=== PATIENT | female | born 1995 | race Caucasian/White ===

== ENCOUNTER 2020-02-12 17:10 | Observation (INO) | payer OTHER, SELFPAY ==
[2020-02-12 17:30] VITALS: BP 108/69; PULSE 74
[2020-02-12 17:45] VITALS: BP 112/73; PULSE 89
[2020-02-12 18:16] VITALS: BMI 27.6
--- NOTE | 2020-02-12 18:16 | OBADM ---
This patient, Calista Ornelas, admitted to the OB room OB Post 117 for observation. Patient/family oriented to hospital policies and general routines including ID bracelet, bed and alarms, visiting hours, pain management, procedures, bathroom and other care routines, personal items, smoking policy, room service/diet, and visiting hours. Patient/Family are encouraged to report perceived risks to care and to ask questions if they do not understand what they are told or what they should do.
--- NOTE | 2020-02-15 11:30 | PM.OBTRLD ---
OB - Triage/Final Diagnosis Visit Information Date of evaluation: 02/12/20 Reason for evaluation: other (r/o ROM)
== END 2020-02-12 18:15 | disposition home or self-care (01) ==
PROVIDERS: Admitting Provider Obstetrics & Gynecology; PCP Family Medicine; Visit Provider Student in an Organized Health Care Education/Training Program
DX: O42.912 Preterm premature rupture of membranes, unspecified as to length of time between rupture and onset of labor, second trimester (principal); Z3A.26 26 weeks gestation of pregnancy
CPT/HCPCS: 84112; G0378; G0379

== ENCOUNTER 2020-05-06 16:54 | Outpatient (RCR) | payer OTHER, SELFPAY ==
[2020-04-29 16:25] VITALS: BP 116/77; PULSE 90
== END 2020-05-12 08:07 | disposition home or self-care (01) ==
LOC: ANHOBOP 16:54
PROVIDERS: PCP Family Medicine; Visit Provider Obstetrics & Gynecology
DX: O41.03X0 Oligohydramnios, third trimester, not applicable or unspecified (principal); Z3A.37 37 weeks gestation of pregnancy; Z3A.38 38 weeks gestation of pregnancy
CPT/HCPCS: 59025

== ENCOUNTER 2020-05-09 22:45 | Inpatient (IN) | payer OTHER, SELFPAY ==
[2020-05-10] VITALS (119 sets, daily range): BP systolic 89–147; BP diastolic 50–109; PULSE 64–286; RESP 16–18; TEMP 36.7–37.4; O2SAT 97–100; BMI 30.7
[2020-05-10 01:02] LABS: Basophils Absolute Auto 0.1 K/mm3 (0.0-0.1); Basophils Percent Auto 0.4 % (0.2-1.2); Eosinophils Absolute Auto 0.1 K/mm3 (0-0.3); Eosinophils Percent Auto 0.7 % (0-4.4); Hematocrit 36.3 % (37.0-47.0); Immature Granulocyte Absolute 0.16 K/mm3 (0.00-0.031); Immature Granulocyte Percent A 1.1 % (0-0.5); Lymphocytes Absolute Auto 2.02 K/mm3 (0.9-3.2); Lymphocytes Percent Auto 14.2 % (18.3-44.2); Mean Corpuscular HGB Conc 33.1 g/dl (32-36); Mean Corpuscular Hemoglobin 30.8 pg (26-34); Mean Corpuscular Volume 93.3 fl (80-100); Neutrophils Absolute Auto 10.9 K/mm3 (1.3-6.7); Neutrophils Percent Auto 76.6 % (45.5-73.1); Platelet Count Result 294 k/mm3 (150-375); Red Blood Count 3.89 M/mm3 (4.2-5.4); Red Cell Distribution Width 13.8 % (11.5-14.5); White Blood Count 14.2 K/mm3 (4.5-10.0)
--- NOTE | 2020-05-10 01:02 | LDADM ---
This patient, Calista Ornelas, was admitted to Labor/Delivery/Recovery 104 on 05/09/20 at 22:45. Plans for labor, pain management and were discussed with patient. Patient/family oriented to hospital policies and general routines including ID bracelet, bed and alarms, visiting hours, pain management, procedures, bathroom and other care routines, personal items, smoking policy, room service/diet and guest tray routines, security routines, and visiting hours. Patient/Family are encouraged to report perceived risks to care and to ask questions if they do not understand what they are told or what they should do. See OBIX for further documentation.
[2020-05-10] MEDS: LACTATED RINGERS 1,000 ML 125 ML IV CONT ×3 (02:10→04:04)
--- NOTE | 2020-05-10 02:35 | WPDANESEPP ---
Anes - Eval Pre Procedure Procedure: Labor epidural Date/Time: 05/10/20 02:35 Surgeon: arlen Preop Diagnosis: Abd pain with contractions Pre Op Diagnosis: Contractions Patient Data Age: 25 Gender: F Height: 5 ft 6 in Weight: 86.3 kg Allergies Allergy/AdvReac Type Severity Reaction Status Date / Time No Known Allergies Allergy Unknown Verified 04/19/20 15:40 Home Medications Medication Instructions Recorded Confirmed Type PNV cmb#95-ferrous fumarate-FA 1 tablet PO DAILY 04/19/20 04/19/20 History [] Laboratory Tests 05/10/20 05/10/20 05/10/20 00:54 00:54 00:54 WBC 14.2 K/mm3 H K/mm3 (4.5-10.0) RBC 3.89 M/mm3 L M/mm3 (4.2-5.4) Hgb 12.0 g/dL g/dL (12.0-15.0) Hct 36.3 % L % (37.0-47.0) MCV 93.3 fl fl (80-100) MCH 30.8 pg pg (26-34) MCHC 33.1 g/dl g/dl (32-36) RDW 13.8 % % (11.5-14.5) Plt Count 294 k/mm3 k/mm3 (150-375) MPV 10.0 fl fl (7.4-10.4) Immature Gran % (Auto) 1.1 % H % (0-0.5) Neut % (Auto) 76.6 % H % (45.5-73.1) Lymph % (Auto) 14.2 % L % (18.3-44.2) [place] % (Auto) 7.0 % % (2.6-8.5) Eos % (Auto) 0.7 % % (0-4.4) Baso % (Auto) 0.4 % % (0.2-1.2) Lymph # (Auto) 2.02 K/mm3 K/mm3 (0.9-3.2) [place] # (Auto) 1.0 K/mm3 H K/mm3 (0.1-0.6) Eos # (Auto) 0.1 K/mm3 K/mm3 (0-0.3) Baso # (Auto) 0.1 K/mm3 K/mm3 (0.0-0.1) Abs Immat Gran (auto) 0.16 K/mm3 H K/mm3 (0.00-0.031) Absolute Neuts (auto) 10.9 K/mm3 H K/mm3 (1.3-6.7) Absolute Nucleated RBC 0.0 K/mm3 K/mm3 (0.0-0.012) Nucleated RBC % 0.0 % % (0.0-0.2) RPR Pending Blood Type O Positive Antibody Screen Negative Patient hx anesthesia problems: none Family hx anesthesia problems: none [facility] Past Medical History Medical History Chronic migraine without aura, not intractable, without status migrainosus H/O: 1 miscarriage (~05/2019) Family History Family History Father Diabetes mellitus Grandparent Family history of pancreatic cancer Mother Hypertension Social History Social History Smoking status: Never smoker Second hand tobacco smoke exposure: No Alcohol intake: current Substance use: never Spiritual care concerns: No Exam Day of Procedure 05/10/20 02:35 Patient weight: normal Neurological: alert and oriented
[2020-05-10] MEDS: OXYTOCIN 30 UNITS/NS 500 ML 30 UNITS/500 ML BAG IV CONT (06:16)
[2020-05-10 07:20] LABS: Rapid Plasma Reagin Non-Reactive (NonReactive)
--- NOTE | 2020-05-10 08:30 | WPDOBADMIT ---
Obstetrics - Admit Note Admission Note: record reviewed. Additions to the history and/or subsequent changes in the physical findings follow. 25 y/o at 38 4/7 weeks here with complaint of contractions. Admitted for labor. Now comfortable with epidural. Labor has progressed and her cervix is now complete. GBS neg. AVSS NST reactive TOCO: contractions every 2-3 min ABD soft, nontender, gravid, vertex EXT nontender Cervix C/+2 A: IUP at term with labor. P: Anticipate .
--- NOTE | 2020-05-10 09:11 | P.PCNOB_ITS ---
OB - Delivery Note Procedure Delivery date: 05/10/20 Procedure: Induction method: none Delivery monitor: external FHT and external uterine Route of delivery: Laceration description: Perineal - 2nd Degree Delivery repair: vicryl (3-0) Specimen: Yes (cord blood, placenta) Estimated blood loss (mL): 120 Anesthesia type: Epidural Disposition: PACU Complications: None Narrative: 25 y/o at 38 4/7 weeks gestation who presented to the hospital with complaint of contractions. Labor was diagnosed. She received an epidural for pain control. Labor was briefly augmented with oxytocin. SROM occurred with meconium-stained fluid. Her labor progressed and her cervix dilated completely. She pushed with good effort and delivered the 's head to the perineum. A loose nuchal cord was reduced. The body delivered. The nose and mouth were bulb suctioned. After a delay, the cord was clamped and cut. The was handed off the field. Cord blood was collected. The placenta delivered spontaneously and was grossly normal in appearance. The usual 3 vessel cord was noted. A second degree midline perineal laceration was sustained. This was reapproximated using 3 0 Vicryl in the usual layered fashion. Excellent hemostasis resulted as did excellent reapproximation of the normal anatomy. Needle and instrument counts were correct. The patient was taken to recovery room in stable condition. The infant went to the nursery in stable condition. I was present and scrubbed for the entire delivery. [place] Baby Date of : 05/10/20 Time of : 08:50 Weeks of gestation at delivery: 38 Infant gender: Female Weight (pounds): 7 Weight (ounces): 9 presentation: vertex position: Left Occiput Anterior Placenta delivery description: Spontaneous and Normal Configuration cord vessel description: 3 Vessels and Nuchal Cord score one minute: 8 score five minutes: 9
--- NOTE | 2020-05-10 09:14 | PM.OBDSVD ---
DS: Admitting Diagnosis Admitting Diagnosis Admitting Diagnosis: Contractions DS: Discharge Diagnosis Discharge Diagnosis (1) (normal spontaneous vaginal delivery): Code(s): O80 - Encounter for full-term uncomplicated delivery Status: Acute OB - DS: Summary OB Procedures : None OB Procedures Intrapartum: Spontaneous Vag Delivery OB Procedures: : Rubella lg Time Spent with Patient Time attestation: Total time spent providing and/or coordinating discharge services: DS: Data Data Completed and Pending Pending studies at discharge: Pending at discharge 05/10/20 08:54 Surgical [PTH] Routine Labs on day of discharge: Labs from last 24 hours 05/10/20 05/10/20 05/10/20 00:54 00:54 00:54 WBC 14.2 H RBC 3.89 L Hgb 12.0 Hct 36.3 L MCV 93.3 MCH 30.8 MCHC 33.1 RDW 13.8 Plt Count 294 MPV 10.0 Immature Gran % (Auto) 1.1 H Neut % (Auto) 76.6 H Lymph % (Auto) 14.2 L [place] % (Auto) 7.0 Eos % (Auto) 0.7 Baso % (Auto) 0.4 Lymph # (Auto) 2.02 [place] # (Auto) 1.0 H Eos # (Auto) 0.1 Baso # (Auto) 0.1 Abs Immat Gran (auto) 0.16 H Absolute Neuts (auto) 10.9 H Absolute Nucleated RBC 0.0 Nucleated RBC % 0.0 RPR Non-reactive Blood Type O Positive Antibody Screen Negative Discharge Plan Discharge Attending physician on discharge: Shiv Webb Discharging Clinician: Shiv Webb Patient Disposition: Home, Self-Care Activity: pelvic rest Diet: regular Discharge Instructions: Call or return if temperature above 100.4? F, increased abdominal pain, increased vaginal bleeding or any new problems. Stand Alone Forms: General Discharge Information Follow-up/Referrals: Shiv Webb MD [Physician] - (6 weeks) Discharge Medications: New ibuprofen 600 mg tablet 600 mg PO Q6H PRN (Reason: cramps) Qty: 30 RF: 0 fluoxetine 20 mg capsule 20 mg PO DAILY Qty: 30 RF: 1 No Action PNV cmb#95-ferrous fumarate-FA [] 28 mg iron- 800 mcg Tablet 1 tablet PO DAILY RF: 0 Date of admission: 05/09/20 22:45 Primary Care Provider: Seven,Namrata Franklin Admitting Provider: Shiv Webb Attending physician on admission: Shiv Webb
[2020-05-10] MEDS: OXYTOCIN 30 UNITS/NS 500 ML 30 UNITS/500 ML BAG 125 UNITS IV CONT (09:24)
[2020-05-10] MEDS: BENZOCAINE 20% AER SPR (*SP) 56 GM CAN 1 SPRAY TOPICAL (09:40)
[2020-05-10] MEDS: LANOLIN (LANSINOH) 7.5 GM CREAM 1 APPLIC TOPICAL (09:40)
[2020-05-10] MEDS: WITCH HAZEL 40 PADS 1 PAD TOPICAL (09:40)
[2020-05-10] MEDS: IBUPROFEN 600 MG TABLET PO ×3 (09:41→22:02)
--- NOTE | 2020-05-10 11:17 | OBPPTRN ---
Patient transferred to post room #284 via wheelchair at 1117. Support person present. Oriented to unit, room, information board, rooming in, admission packet and security measures. Patient verbalizes understanding.
[2020-05-10] MEDS: DOCUSATE SODIUM 100 MG CAPSULE PO (15:37)
[2020-05-10] MEDS: ACETAMINOPHEN 325 MG TABLET 650 MG PO (20:40)
[2020-05-11] MEDS: ACETAMINOPHEN 325 MG TABLET 650 MG PO ×3 (02:39→13:07)
[2020-05-11] MEDS: IBUPROFEN 600 MG TABLET PO ×2 (04:35→10:33)
[2020-05-11 05:58] LABS: Hematocrit 30.8 % (37.0-47.0)
[2020-05-11] MEDS: DOCUSATE SODIUM 100 MG CAPSULE PO ×2 (07:44→15:12)
[2020-05-11] MEDS: MULTIVIT/MIN/PREN/FOL AC/IRON TABLET 1 TAB PO (07:44)
[2020-05-11 08:00] VITALS: BP 101/56; PULSE 65; RESP 18; TEMP 36.7
--- NOTE | 2020-05-11 08:55 | WPDANLDPN2 ---
Anes-Prog Note L&D Date/Time: 05/11/20 08:55 Comfortable throughout: labor and delivery Neuraxial method: epidural Epidural/Spinal procedure site: clean & non-tender Neuro status: Neuro function grossly intact. Cardiovascular status: normal Respiratory status: normal Airway patency: baseline Mental status: baseline Post-Op hydration status: normal Vital Signs: Last Vital Signs Temp 36.8 C 05/10/20 20:00 Pulse 78 05/10/20 20:00 Resp 18 05/10/20 20:00 BP 113/76 05/10/20 20:00 Pulse Ox 97 05/10/20 20:00 Post-procedural complaints: none Patient feedback: Patient satisfied with anesthetic care.
--- NOTE | 2020-05-11 12:57 | PM.OBPNVD ---
OB - PN: Subj Subjective Date/time seen: 05/11/20 12:57 Narrative: Pain OK. Would like to resume fluoxetine 20 mg. Wants to go home. OB - PN: Obj Data Labs CBC & Chem 7: 05/11/20 04:31 Labs: Laboratory Results - last 24 hr 05/11/20 04:31 Hgb 10.0 L Hct 30.8 L OB - PN A/P Plan Comments: A: PPD#1, doing well. P: Routine care. Home to f/u 6 weeks. Fluoxetine 20 mg po daily. Exam Psych: Other: AVSS ABD soft, nontender, fundus firm EXT nontender
[2020-05-11] MEDS: MEASLES,MUMPS,RUBELLA VACCINE 0.5 ML VIAL SUB-Q (13:01)
--- NOTE | 2020-05-11 13:22 | PC.NURSE ---
Patient viewed the discharge video Mother & Baby Care, The First Two Weeks . Patient was given the opportunity and encouraged to ask questions. Patient verbalized understanding of information shared and has been given the mother/baby guide for home reference.
--- NOTE | 2020-05-11 14:00 | PC.NURSE ---
Consulted with patient, mother reports infant is eagerly latching without difficulties or discomfort. Reviewed feeding cues, frequencies, duration of feedings, feeding elimination flow sheet, and signs of adequate intake. Demonstrated stimulation techniques to wake infant for feeding. Assisted with to breast. Reviewed positioning/alignment in cross cradle, holding breast in U hold and guided asymmetrical latch on. was able to latch correctly. nursed eagerly, with steady draws and occasional swallowing noted. Reviewed signs of a correct latch, effective nursing and suck swallow ratio. was able to maintain latch without discomfort to mother. Nipple care reviewed. Suggested to stimulate infant while feeding to keep awake and nursing effectively for increased intake and to assist with maintaining deep latch. Instructed mother to call out for RN assistance if she is unable to latch for feeding or she has discomfort with nursing. Instructed feeding should be initiated three hours from start of last feeding or if feeding cues are noted before. Mother voiced understanding of information shared. Mother plans on discharge after 24 hours. Mother is feeding as required and waking to feed if needed. has had appropriate number of effective feedings for age, and is currently meeting outcomes for weight, output, jaundice and feeding frequencies. Mother states she feels confident to continue effective at home. Reviewed transition to breast milk, signs of adequate intake, and engorgement/relief. Instructed to call ICP if intake/output less than required. Reviewed regular medications mother is taking. Information provided per Cesia. Reviewed community resources on the [facility] website and in the Mom/Baby guide. Information on outpatient services provided. Mother has no further questions at this time.
--- NOTE | 2020-05-11 14:24 | PC.NURSE ---
Self care and infant care discharge instructions given including follow up visit date and time. Parents verbalized understanding. No questions or concerns voiced. Very pleasant and cooperative.
[2020-05-11] MEDS: BENZOCAINE 20% AER SPR (*SP) 56 GM CAN 1 SPRAY TOPICAL (15:12)
[2020-05-11] MEDS: WITCH HAZEL 40 PADS 1 PAD TOPICAL (15:12)
[2020-05-13 10:47] VITALS: BP 125/85; PULSE 78; RESP 20; O2SAT 100
== END 2020-05-11 15:35 | disposition home or self-care (01) | DRG 807 ==
LOC: ANHLDR 05-10 09:15 → ANHOB2 05-10 11:23
PROVIDERS: Admitting Provider Obstetrics & Gynecology; PCP Family Medicine; Visit Provider Obstetrics & Gynecology
DX: O41.03X0 Oligohydramnios, third trimester, not applicable or unspecified (principal); Z37.0 Single live birth; O69.81X0 Labor and delivery complicated by cord around neck, without compression, not applicable or unspecified; Z3A.38 38 weeks gestation of pregnancy; O70.1 Second degree perineal laceration during delivery; O77.0 Labor and delivery complicated by meconium in amniotic fluid; O99.344 Other mental disorders complicating childbirth; F41.8 Other specified anxiety disorders; O99.62 Diseases of the digestive system complicating childbirth; K21.9 Gastro-esophageal reflux disease without esophagitis
CPT/HCPCS: 36415; 85014; 85018; 85025; 86592; 86850; 86900; 86901; 88307; 90710; A9270; J2590; J2795; J7120

== ENCOUNTER → 2022-12-04 10:11 | Outpatient (CLI) | payer OTHER, SELFPAY ==
--- NOTE | ~2022-12-04 | US_ITS ---
EXAMINATION: US thyroid DATE: 12/04/2022 10:29 INDICATION: Nontoxic single thyroid nodule. TECHNIQUE: Multiple ultrasound images of the thyroid were obtained. COMPARISON: None. FINDINGS: The right thyroid lobe measures 4.9 x 1.4 x 1.8 cm. The left thyroid lobe measures 4.6 x 1.0 x 1.8 c m. In the right thyroid lobe, there is a 1.8 cm solid, hypoechoic, wider than tall nodule with nelida h margin without echogenic foci (TI-RADS TR4). In the right thyroid lobe, there is a 1.5 cm mixed cys tic and solid, hypoechoic, wider than tall nodule with ill-defined margin without echogenic foci (TR3 ). In the left thyroid lobe, there is a 6 mm solid, hypoechoic, wider than tall nodule with smooth ma rgin without echogenic foci (TR4). IMPRESSION: 1. Multinodular goiter. Ultrasound-guided fine-needle aspiration of the 1.8 cm right thyroid nodule i s recommended. Reviewed, dictated and finalized at location A. IMPRESSION: 1. Multinodular goiter. Ultrasound-guided fine-needle aspiration of the 1.8 cm right thyroid nodule is recommended.
== END ==
PROVIDERS: PCP Internal Medicine; Visit Provider Internal Medicine
DX: E04.2 Nontoxic multinodular goiter (principal)
CPT/HCPCS: 76536

== ENCOUNTER 2023-02-15 13:00 | Inpatient (IN) | payer OTHER, SELFPAY ==
[2023-02-15] VITALS (82 sets, daily range): BP systolic 69–133; BP diastolic 27–81; PULSE 58–123; RESP 20; TEMP 36.7–36.9; O2SAT 95–100; BMI 32.0
--- NOTE | 2023-02-15 13:34 | WPDANESEPP ---
Anes - Eval Pre Procedure Procedure: Labor Epidural Date/Time: 02/15/23 13:34 Surgeon: Jon Preop Diagnosis: Labor Pain Pre Op Diagnosis: contractions Patient Data Age: 27 Gender: F Height: Weight: Allergies Allergy/AdvReac Type Severity Reaction Status Date / Time No Known Allergies Allergy Unknown Verified 01/23/23 15:24 Home Medications Medication Instructions Recorded Confirmed Type vit no.95-ferrous 1 tablet PO DAILY 04/19/20 01/23/23 History fumarate 28 mg-folic acid 800 mcg tablet () fluoxetine 20 mg capsule 40 mg PO DAILY 01/23/23 01/23/23 History : gestational age ([place] 02/20/23) Patient hx anesthesia problems: none Family hx anesthesia problems: none Results Review: All pre-operative results and documents have been reviewed as part of the pre-operative evaluation. [facility] Past Medical History Medical History Chronic migraine without aura, not intractable, without status migrainosus H/O: 1 miscarriage (~05/2019) Family History Family History Father Diabetes mellitus Grandparent Family history of pancreatic cancer Mother Hypertension Parkinsons disease Social History Social History Smoking status: Never smoker Second hand tobacco smoke exposure: No Alcohol intake: never Substance use: never Substance use type: does not use Living arrangements: with family Spiritual care concerns: No Exam Day of Procedure 02/15/23 13:34 Neurological: alert and oriented
[2023-02-15] MEDS: LACTATED RINGERS 1,000 ML 125 ML IV CONT ×2 (13:35→14:51)
--- NOTE | 2023-02-15 13:41 | LDADM ---
This patient, Calista Ornelas, was admitted to Labor/Delivery/Recovery 107 on 02/15/23 at 13:00. Plans for labor, pain management and were discussed with patient. Patient/family oriented to hospital policies and general routines including ID bracelet, bed and alarms, visiting hours, pain management, procedures, bathroom and other care routines, personal items, smoking policy, room service/diet and guest tray routines, security routines, and visiting hours. Patient/Family are encouraged to report perceived risks to care and to ask questions if they do not understand what they are told or what they should do. See OBIX for further documentation.
[2023-02-15 13:47] LABS: Basophils Percent Auto 0.3 % (0.2-1.2); Eosinophils Absolute Auto 0.1 K/mm3 (0-0.3); Eosinophils Percent Auto 0.5 % (0-4.4); Hematocrit 39.2 % (37.0-47.0); Hemoglobin 12.9 g/dL (12.0-15.0); Immature Granulocyte Absolute 0.06 K/mm3 (0.00-0.031); Immature Granulocyte Percent A 0.5 % (0-0.5); Lymphocytes Percent Auto 15.9 % (18.3-44.2); Mean Corpuscular HGB Conc 32.9 g/dl (32-36); Mean Corpuscular Hemoglobin 30.4 pg (26-34); Mean Corpuscular Volume 92.2 fl (80-100); Mean Platelet Volume 9.5 fl (7.4-10.4); Monocytes Absolute Auto 0.7 K/mm3 (0.1-0.6); Monocytes Percent Auto 5.5 % (2.6-8.5); Neutrophils Absolute Auto 9.2 K/mm3 (1.3-6.7); Neutrophils Percent Auto 77.3 % (45.5-73.1); Platelet Count Result 314 k/mm3 (150-375); Red Blood Count 4.25 M/mm3 (4.2-5.4); Red Cell Distribution Width 14.7 % (11.5-14.5); White Blood Count 11.9 K/mm3 (4.5-10.0)
[2023-02-15 16:23] LABS: Rapid Plasma Reagin Non-Reactive (NonReactive)
--- NOTE | 2023-02-15 16:27 | PC.NURSE ---
1620 - Introductions were made and mother shared how she would like to feed her baby with exclusive along with her past experience of 27 months suppling human milk to their first daughter. Encouraged mother to place [id number] until the first feeding if is stable and to wait on the weight to help stabilize, reduce stress, and improve latching by allowing infant time to explore parent's chest using instincts. Education was shared on how to protect her milk supply with latching and/or using hand expression to remove milk if doesn't latch in the first hour, then finger feed colostrum to the to preserve breast focus. Mother states she understands how to hand express human milk. Resources provided with educational trifold for bonding and feeding infant. Parents voiced understanding of information and to call if there is a request for assistance.
--- NOTE | 2023-02-15 18:30 | PM.OBPRVD ---
OB - Delivery Note Procedure Delivery date: 02/15/23 Induction method: None Delivery monitor: External FHT Route of delivery: Episiotomy description: None Laceration Description: Perineal - 1st Degree Delivery repair: vicryl Specimen: Yes (placenta) Quantitative Blood Loss (ml): 60 Anesthesia type: Epidural Disposition: Floor Baby Date of : 02/15/23 Time of : 18:14 Weeks of gestation at delivery: 39 Infant gender: Female presentation: vertex position: Right Occiput Anterior Placenta delivery description: Spontaneous Cord Vessel Description: 3 Vessels
[2023-02-15] MEDS: ALPRAZolam (*CRX) 0.5 MG TABLET PO (19:25)
--- NOTE | 2023-02-15 21:28 | PC.NURSE ---
Patient transferred to post room #290 per wheelchair from labor and delivery. Support person present. Oriented to unit, room, information board, rooming in, admission packet and security measures. Patient verbalizes understanding.
[2023-02-15] MEDS: IBUPROFEN 600 MG TABLET PO (21:45)
[2023-02-15] MEDS: ACETAMINOPHEN 325 MG TABLET 650 MG PO (23:32)
[2023-02-16 00:45] VITALS: BP 126/74; PULSE 77; RESP 18; TEMP 36.7
[2023-02-16] MEDS: IBUPROFEN 600 MG TABLET PO ×2 (03:45→13:15)
[2023-02-16 05:08] LABS: Hematocrit 37.2 % (37.0-47.0); Hemoglobin 12.1 g/dL (12.0-15.0)
[2023-02-16 08:40] VITALS: BP 112/78; PULSE 72; RESP 16; TEMP 37.2; O2SAT 100
--- NOTE | 2023-02-16 08:48 | PM.OBPNVD ---
OB - PN: Subj Subjective Date/time seen: 02/16/23 08:48 Narrative: Pain OK. Anxious about status of the baby. OB - PN: Obj Data Labs 02/16/23 04:12 Labs: Laboratory Results - last 24 hr 02/15/23 02/16/23 13:32 04:12 WBC 11.9 H RBC 4.25 Hgb 12.9 12.1 Hct 39.2 37.2 MCV 92.2 MCH 30.4 MCHC 32.9 RDW 14.7 H Plt Count 314 MPV 9.5 Immature Gran % (Auto) 0.5 Neut % (Auto) 77.3 H Lymph % (Auto) 15.9 L [place] % (Auto) 5.5 Eos % (Auto) 0.5 Baso % (Auto) 0.3 Lymph # (Auto) 1.90 [place] # (Auto) 0.7 H Eos # (Auto) 0.1 Baso # (Auto) 0.0 Abs Immat Gran (auto) 0.06 H Absolute Neuts (auto) 9.2 H Absolute Nucleated RBC 0.0 Nucleated RBC % 0.0 RPR Non-reactive Blood Type O Positive Antibody Screen Negative OB - PN A/P Plan Comments: A: PPD#1, doing well. P: Routine care. Exam Psych: Other: AVSS ABD soft, nontender, fundus firm EXT nontender
[2023-02-16] MEDS: MULTIVIT/MIN/PREN/FOL AC/IRON TABLET 1 TAB PO (08:51)
[2023-02-16] MEDS: ACETAMINOPHEN 325 MG TABLET 650 MG PO ×2 (08:51→17:31)
[2023-02-16] MEDS: DOCUSATE SODIUM 100 MG CAPSULE PO ×2 (08:51→17:31)
--- NOTE | 2023-02-16 08:51 | WPDOBADMIT ---
Obstetrics - Admit Note Admission Note: Late entry from 1315 on 02/15/23. record reviewed. Additions to the history and/or subsequent changes in the physical findings follow. 27 y/o at 39 2/7 weeks gestation presenting to L&D with contractions. Labor was diagnosed. No leakage of fluid. GBS neg. 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 NIPT was negative. She has had good movement. Depression and anxiety have been well-controlled with fluoxetine 40 mg daily. AVSS ABD soft, nontender, gravid, vertex EXT nontender Cervix 350/-2. Vertex. NST reactive TOCO: contractions every 3- 4 mni A: IUP at term withi labor. 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 [facility] has cleared her to deliver at the [facility]. P: Anticipate .
--- NOTE | 2023-02-16 09:22 | WPDANLDPN2 ---
Anes-Prog Note L&D Date/Time: 02/16/23 09:22 Neuro status: Neuro function grossly intact. Cardiovascular status: normal Respiratory status: normal Airway patency: baseline Mental status: baseline Post-Op hydration status: normal Vital Signs: Last Vital Signs Temp 36.7 C 02/16/23 00:45 Pulse 77 02/16/23 00:45 Resp 18 02/16/23 00:45 BP 126/74 02/16/23 00:45 Pulse Ox 100 02/15/23 18:14 O2 Del Method Room Air 02/16/23 08:45 Pain score (VAS): 0 I/O: Intake & Output 02/15/23 02/16/23 02/16/23 23:59 07:59 15:59 Intake Total 0 Output Total 100 Balance -100 Post-procedural complaints: none Patient feedback: Patient satisfied with anesthetic care.
[2023-02-16 12:30] VITALS: BP 127/77; PULSE 92; RESP 18; TEMP 37.3; O2SAT 99
--- NOTE | 2023-02-16 13:24 | PC.NURSE ---
[id number] Purposefully rounded to assess needs related to . Mother led conversation with her experience with feeding baby so far. Mother works with her with encouragement. Reviewed working with infant, supporting breast and how to protect the nipples with an optimal deep latch, good positioning, and good hand washing. Mother demonstrates her knowledge as she has a successful history with her first child. Encouraged understanding the benefits of skin to skin, responding to feeding cues, frequencies of feeding 8-12 times in 24 hours (approximately 2-3 hours), duration of feedings, milk production, intake/output feeding sheet and signs of adequate intake encouraging swallowing at the breast. Reviewed positioning and alignment, supporting breast, off-centered (asymmetrical latch) and leading with the chin with big, open, wide gape. Infant opens mouth optimally to latch to the left breast in cross cradle position, then doesn't breastfeed. Discussed with parents typical behavior for an less than 24 hours old. Nipple care reviewed with optimal latch, good positioning and using clean hands when feeding her and touching her breast. Mother learned the skill of hand expression and finger fed colostrum to her infant. We discussed the adequate intake and output at this time. Reviewed signs of positivity using the pie demonstration. Malachi Er Medical Technician came into the room and discussed with the parents that there is no concerns at this time and reiterated the less than 24 hour behaviors and what we are watching and assessing as time goes on. Set a plan with parents to attempt again at 1100. Infant is [id number] with mother. Resources used to facilitate learning were used from the tool, mom and baby guide. Parents voiced understanding of the education shared, to call for assistance if the does not latch or if there is discomfort with . Reported to the primary RN. 1103 - Mother states nursery RN took the infant to do hearing test. [id number] Purposefully rounded to practice waking infant to breastfeed. Infant is sleepy and reluctant. Father of baby changed the second void and large meconium stool diaper since less than 24 hours ago. Mother practiced hand expression and finger fed the colostrum drops to her infant. Mother demonstrates understanding of stimulating to wake to breastfeed. Infant demonstrates gaging behavior and we discuss infant might have some fullness in her belly from fluid at delivery and colostrum from earlier feedings that needs to be spit up or pooped out. Mother holds infant upright on her chest with head turned to the side using massage touch to encourage eating. is sleepy. Mother desires to pump her breast to stimulate breast and possibly collect more colostrum for her infant to be fed. Reviewed the pie demonstration and the blood sugar results, the pees, poops, and the weight and jaundice has not been a concern at this time. Reported to the primary RN who will assist mother in collecting the colostrum on the spoon if needed after pumping. Encouraged mother to keep practicing and call for assistance if infant doesn't wake to breastfeed, there's pain with the latch or any concerns. Reported to the Primary RN.
--- NOTE | 2023-02-16 15:05 | PC.NURSE ---
[id number] Mother requested a consult. Mother is holding swaddled . There are new visitors in the room and mother is anxious. The visitor states she is spiraling and we just spiral with her . was given an opportunity to do [id number] with mother, mother practiced hand expression and finger fed colostrum to her infant, father of baby states he had just changed the third stool diaper since , and we reviewed all earlier education regarding milk production. There was an offer to assess the infants blood sugar and mother declined. Infant is has rare feeding cues and is sleepy. Reviewed things we assess as RN using the pie chart demonstration. Discussed risks and benefits of formula feeding and that it is not necessary at this time medically. Information was discussed so mother can make an informed decision. Reviewed typical behavior for the first 24 hours of life. Mother was planning to stimulate her breast with pumping and visitors are leaving with the older child. Mother voiced understanding to call for collection of colostrum if needed and a plan to consult together again approximately at 1600. Reported to Primary RN.
[2023-02-16 16:20] VITALS: BP 125/80; PULSE 78; RESP 16; TEMP 36.8; O2SAT 98
--- NOTE | 2023-02-16 17:07 | PC.NURSE ---
[id number] Purposefully rounded to assess for any questions or concerns related to mother requesting a visit before LC left for the day. Encouraged mother with positive information after TCB (5.4) and blood sugar (58mg/dl) was measured. Infant was dwyx-or-udgb and demonstrates feeding cues at times, although, when placed at the breast to eat either sleeps or holds the nipple in her mouth. After much discussion, reiteration of teaching along with risks and benefits of feeding choices, then parents opted to supplement with formula and a bottle to see if that moves the goal of forward. Primary RN is present for the discussion.
[2023-02-16 20:00] VITALS: BP 127/64; PULSE 87; RESP 18; TEMP 36.9
[2023-02-17 07:45] VITALS: BP 120/62; PULSE 85; RESP 18; TEMP 37.2
--- NOTE | 2023-02-17 08:56 | PM.OBPNVD ---
OB - PN: Subj Subjective Date/time seen: 02/17/23 08:56 Narrative: Pain OK. Would like to go home. OB - PN: Obj Data Labs 02/16/23 04:12 OB - PN A/P Plan day: 2 Plan: routine care Comments: A: PPD#2, doing well. P: Home to f/u 6 weeks. Time Spent With Patient Time with patient: less than 15 minutes Exam Psych: Other: AVSS ABD soft, nontender, fundus firm EXT nontender
--- NOTE | 2023-02-17 08:56 | PM.OBDSVD ---
DS: Admitting Diagnosis Discharge Date 02/17/23 Admitting Diagnosis IUP at term Labor DS: Discharge Diagnosis Discharge Diagnosis (1) (normal spontaneous vaginal delivery): Code(s): O80 - Encounter for full-term uncomplicated delivery Status: Acute Assessment and Plan: A: at term P: Home to f/u 6 weeks. OB - DS: Summary OB Procedures : None OB Procedures Intrapartum: Spontaneous Vag Delivery OB Procedures: : None Time Spent with Patient Time attestation: Total time spent providing and/or coordinating discharge services: DS: Data Data Completed and Pending Pending studies at discharge: Pending at discharge 02/16/23 07:50 Surgical [PTH] Routine Discharge Plan Discharge Attending physician on discharge: Shiv Webb Discharging Clinician: Shiv Webb Patient Disposition: Home, Self-Care Activity: pelvic rest Diet: regular Discharge Instructions: Call or return if temperature above 100.4? F, increased abdominal pain, increased vaginal bleeding or any new problems. Stand Alone Forms: General Discharge Information Follow-up/Referrals: Shiv Webb MD [Physician] - 6 Weeks Discharge Medications: New ibuprofen 600 mg tablet 600 mg PO Q6H PRN (Reason: cramps) Qty: 30 0RF Continued PNV cmb#95-ferrous fumarate-FA [] 28 mg iron- 800 mcg Tablet 1 tablet PO DAILY fluoxetine 20 mg capsule 40 mg PO DAILY Date of admission: 02/15/23 13:00 Primary Care Provider: Grecia Gan Admitting Provider: Shiv Webb Attending physician on admission: Shiv Webb Condition: Stable
[2023-02-17] MEDS: MULTIVIT/MIN/PREN/FOL AC/IRON TABLET 1 TAB PO (10:55)
[2023-02-17] MEDS: DOCUSATE SODIUM 100 MG CAPSULE PO (10:55)
== END 2023-02-17 11:30 | disposition home or self-care (01) | DRG 807 ==
LOC: ANHLDR 13:08 → ANHOB2 21:30
PROVIDERS: Obstetrics & Gynecology; Admitting Provider Obstetrics & Gynecology; PCP Internal Medicine; Visit Provider Obstetrics & Gynecology
DX: O69.82X0 Labor and delivery complicated by other cord entanglement, without compression, not applicable or unspecified (principal); Z37.0 Single live birth; Z3A.39 39 weeks gestation of pregnancy; O70.0 First degree perineal laceration during delivery; O99.344 Other mental disorders complicating childbirth; F41.8 Other specified anxiety disorders
CPT/HCPCS: 36415; 85014; 85018; 85025; 86592; 86850; 86900; 86901; 88307; A9270; J2795; J7120

== ENCOUNTER 2025-07-07 08:37 | Outpatient (CLI) | payer OTHER, SELFPAY ==
--- OUTSIDE RECORDS SUMMARY | 2025-07-07 08:52 | XMS_ITS | Clinical Summary ---
Author Organization [facility] [address] Address [address] [place] [address] Care Team Providers Care Pharmaceutical Process Engineer Name Role Phone Grecia Gan MD Primary Care Provider [phone]- [phone] Allergies No known active allergies Medications vit 11-osbb-pvuak-d floyd 27mg iron- 800 mcg-250 mg capsule Take by mouth Active FLUoxetine (PROzac) 40 mg capsule Take 1 capsule (40 mg total) by mouth daily 11/24/2022 Active Active Problems Problem Noted Date Diagnosed Date Right thyroid nodule 12/13/2022 Assessment & Plan (03/03/2024 3:23 PM CDT): Performed a follow-up thyroid ultrasound in office today Overall improving right thyroid nodule size. Follow-up in 1 year Assessment & Plan (07/09/2023 3:45 PM QUARTER FOLDER): 1.8 cm right thyroid nodule that was diagnosed 2022 No compressive symptoms Performed a follow-up thyroid ultrasound today Noted overall stable right thyroid nodule greater than 80% cystic Last TSH within normal limits Advised to follow-up in 6 months for repeat thyroid ultrasound Assessment & Plan (12/13/2022 4:40 PM CDT): Reviewed patient recent thyroid ultrasound report Checked patient thyroid ultrasound in real-time in office noted right thyroid nodule, complex measuring approximately 1.94 x 0.98 x 1.86 cm ( > 80 cystic ) , grade 2 Vascularity noted and no calcifications noted - For me it looks low suspicious thyroid nodule but again patient will be needing FNA biopsy in future advised that we can defer at this time while she is and we can always consider follow back in 6 months and repeat thyroid ultrasound in office in consider FNA biopsy. Patient has no compressive symptoms Recent TSH within normal limits Patient agreed to above plan SVT (supraventricular tachycardia) 04/17/2020 History of cardiac radiofrequency ablation 04/13 Premature ventricular beats 04/13/2020 04/13/2020 Medical History Medical History Date Comments SVT (supraventricular tachycardia) s/p ablation History of cardiac radiofrequency ablation (RFA) Family History Medical History Relation Name Comments Diabetes Father Hypertension Mother Relation Name Status Comments Father Alive Mother Alive Sister Alive Social History Tobacco Use Types Packs/Day Years Used Date Smoking Tobacco: Never Smokeless Tobacco: Never Tobacco Cessation:Counseling Given: Not Answered Alcohol Use Standard Drinks/Week Comments Not Currently 0 (1 standard drink = 0.6 oz pur e alcohol) AUDIT-C Answer Date Recorded Q1: How often do you have a drink containing alc ohol? Never 04/13/2020 Average Number of Drinks Not on file 020 Frequency of Binge Drinking Not on file 03/27 PHQ-2 Answer Date Recorded PHQ-2 Total Score (If total score is 3 or more points, staff should administer the PHQ-9) 0 03/03/2024 Comments Unknown Sex and Gender Information Value Date Recorded Sex Assigned at Not on file Legal Sex Female 6:52 AM CDT Gender Identity Not on file Sexual Orientation Not on file Last Filed Vital Signs Vital Sign Reading Time Taken Comments Blood Pressure 122/80 03/02/2025 10:13 AM CDT Pulse 82 03/02/2025 10:13 AM CDT Temperature - - Respiratory Rate 15 03/02/2025 10:13 AM CDT Oxygen Saturation 98% 04/13/2020 2:58 PM CDT Inhaled Oxygen Concentration - - Weight 84.4 kg (186 lb) 03/02/2025 10:13 AM CDT Height 167.6 cm (5' 6) 03/02/2025 10:13 AM CDT Body Mass Index 30.02 03/02/2025 10:13 AM CDT Plan of Treatment Health Maintenance Due Date Last Done Comments Cervical Cancer Screening 1993 Hepatitis C Screening 1993 Varicella Vaccines (1 of 2 - 13+ 2-dose series) 2006 Hepatitis B Screening 2011 Regular Well Visit/Exam 18-64 2011 HPV Vaccines (1 - 3-dose SCD M series) 2020 Depression Screening 03/03/2025 03/03/2024, 12/13/2022 Influenza Vaccine (#1) 2025 05/27/2019 DTaP/Tdap/Td Vaccine (2 - Td or Tdap) 03/11/2030 03/11/2020 Pneumococcal vaccine <65 Aged Out No longer eligible based on patient's age to complete this topic Insurance [facility] H[facility]/PPO Address: [address] [address] [place] [address] [facility] CHO[facility] HMO/PPO Address: [address] [address] [place] [address] Care Teams Pharmaceutical Process Engineer Relationship Specialty Start Date End Date Grecia Gan MD PCP - General Internal Medicine 12/13/22
--- OUTSIDE RECORDS SUMMARY | 2025-07-07 08:52 | XMS_ITS | Clinical Summary ---
Author Organization [facility] [employer] Address [address] [place] [address] Care Team Providers Care Electronic Warfare Technical Name Role Phone Grecia Gan MD Primary Care Provider +1- [phone] Source Comments [facility] [employer],non-owned Affiliates and Associated Physician Practices is amultiple site organization consisting of ambulatory clinics and hospital sitesin [place], [place], [place] and [place]. This disclosure is being madepursuant to the Care Everywhere program and may not contain all information available regarding this patient. 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 Her initial score at baseline was 4. Based off of her score of 4, Deon does not warrant follow up. Patient will continue to be screened throughout , at intervals no closer than two weeks, for continued surveillance and early identification of depression until delivery. 11/30/22 EPDS f/u=3 12/28/22 EPDS f/u=2 01/25/23 EPDS f/u=3 Patient reports mental health history. Diagnoses include depression and anxiety. SENIOR LIVING- abnormality in pre gnancy- Bilateral LENS SILVERER Permembranous VSD, abnormal CSP 10/02/2022 07/0 10/2022 Overview (02/06/2023): Images from the original note were not included. SENIOR LIVING PATIENT--PLEASE CALL [phone] (ex 2) IF TRIAGED OR ADMITTED Care Provider: Dr. Webb- OB; Dr. [facility] [place] consultants involved: Mary- Nurse Navigator; Dr. Cox- MFM; Tayna Graham DIALYSIS BIOMED TECHNICIAN; Dr. 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 Planned surveillance: MRI/ US and consultation with Neurology at on 11/30. Delivery location: [facility] with OB Delivery mode: Desired Delivery GA: follow up per Cardiology: Outpatient cardiology visit at 1 month of age; Plan for obtaining MRI Brain after (to look for other associated brain anomalies that may not be as apparent or visualized on MRI) and within first month (to avoid sedation). Schedule Neurology visit at about 4 months of age for developmental evaluation. Recommendations per Urology: for UTDA1 (Urinary Tract Dilation- A1) Unilateral or Bilateral on ultrasound a. Ok to deliver at hospital of parents' choosing b. Monitor urine output during hospital stay c. Monitor blood pressure during hospital stay d. Parent to schedule a renal ultrasound & follow up appointment at greater than 48 hours after but less than 1 month of life by calling clinical nurse, at [phone] e. Ok to circumcise male with normal urethral meatus Beam Sealer: Dr. Olga Webb Genetics note: genetic diagnostic testing was not performed. Please request Genetics consult postnatally if clinically indicated by calling the Genetics office at [phone] prior to ordering genetic studies. Power Plant Operator Concerns: 10/23/2022-Patient with history of anxiety and depression-does take medication Care plan based on evaluation and is subject to change based on assessment. See Images or Cardiac under Chart Review for US/ ECHO/ MRI reports. Social History Tobacco Use Types Packs/Day Years Used Date Smoking Tobacco: Never Assessed Ivanhoe Depression Scale Answer Date Recorded Ivanhoe Depression Scale Total 3 01/25/2023 The thought of harming myself has occurred to me . Never 01/25/2023 Comments No Sex and Gender Information Value Date Recorded Sex Assigned at Not on file Legal Sex Female 9:37 AM CDT Gender Identity Not on file Sexual Orientation Not on file Last Filed Vital Signs Vital Sign Reading Time Taken Comments Blood Pressure 116/77 01/25/2023 2:17 PM CDT Pulse 80 12/28/2022 10:22 AM CDT Temperature - - Respiratory Rate - - Oxygen Saturation - - Inhaled Oxygen Concentration - - Weight 88 kg (194 lb 0.1 oz) 01/25/2023 2:17 PM CDT Height - - Body Mass Index - - Plan of Treatment Health Maintenance Due Date Last Done Comments HIV SCREENING 2008 HEPATITIS C SCREENING 03/11/2011 DTAP/TDAP/TD VACCINES (1 - Tdap) 2012 HEPATITIS B VACCINE (1 of 3 - 19+ 3-dose series) 2012 PAP SMEAR 2014 HPV VACCINE (1 - 3-dose SCDM series) 2020 DEPRESSION SCREENING 08/27/2024 COVID-19 VACCINE (3 - 2024- season) 2025 10/15/2020, 09/16/2020 INFLUENZA VACCINE (#1) 2025 , 05/26/2021, 05/09/2020, Additional history exists ZOSTER VACCINE (1 of 2) 2043 HIB VACCINE Aged Out No longer eligi ble based on patient's age to complete this topic MENINGOCOCCAL (Group B) VACCINE SHARED DECISION-MAKING Aged Out No longer eligible based on patient's age to complete this topic MENINGOCOCCAL GROUPS A/C/Y/W VACCINE Aged Out No longer eligible based on patient's age to complete this topic PNEUMOCOCCAL VACCINE Aged Out No long er eligible based on patient's age to complete this topic Insurance [facility] Care Teams Electronic Warfare Technical Relationship Specialty Start Date End Date Grecia Gan MD [address] [place] [id number] PCP - General Internal Medicine 09/28/22
[2025-07-07 10:48] LABS: Thyroid Stimulating Hormone Reflex 1.260 uIU/mL (0.465-4.68)
== END 2025-07-07 08:38 | disposition home or self-care (01) ==
LOC: ANHLAB 08:39
PROVIDERS: PCP Family Medicine; Visit Provider Obstetrics & Gynecology
DX: N92.6 Irregular menstruation, unspecified (principal)
CPT/HCPCS: 36415; 84144; 84146; 84443

== ENCOUNTER 2025-08-24 11:01 | Outpatient (CLI) | payer OTHER, SELFPAY ==
--- NOTE | ~2025-08-24 | US_ITS ---
EXAMINATION: US OB <= 14 weeks fetus DATE: 08/24/2025 11:23 INDICATION: Evaluate viability TECHNIQUE: Real-time transabdominal and transvaginal obstetric ultrasound. FINDINGS: No prior studies for comparison. The uterus measures 12.1 x 7.5 times. There is an intrauterine gestational sac, with pole identified. The crown rump length measures 2.76 cm, which correlates with a estimated gestational age of 9 weeks 4 days. heart tones are identified measuring 176 BPM. IMPRESSION: 1. SL IUP with an EGA of 9 weeks, 4 days (EDC by current ultrasound of 03/25/2026). Reviewed, dictated and finalized at location O. EFIER IMPRESSION: 1. SL IUP with an EGA of 9 weeks, 4 days (EDC by current ultrasound of ).
== END 2025-08-24 11:02 | disposition home or self-care (01) ==
LOC: MICIMG 11:01
PROVIDERS: PCP Obstetrics & Gynecology; Visit Provider Obstetrics & Gynecology
DX: Z34.90 Encounter for supervision of normal pregnancy, unspecified, unspecified trimester (principal)
CPT/HCPCS: 76801